=== PATIENT | male | born 1955 | race Caucasian/White ===

== ENCOUNTER 2020-05-04 09:27 | Outpatient (CLI) | payer OTHER, SELFPAY ==
--- NOTE | 2020-05-04 10:00 | XR_ITS ---
WS: [id number] ABDOMEN: SUPINE FILM HISTORY: RENAL STONE COMPARISON: None available. Normal bowel gas pattern. No soft tissue masses. Right kidney: No renal or ureteral stone identified. Left kidney: Large calcification centered over the LEFT renal pelvis measuring 1.7 x 2.4 cm. No urete ral calcification. XR/XR KUB [id number] IMPRESSION: LEFT renal calcification measuring 1.7 x 2.4 cm.
== END 2020-05-04 09:28 | disposition home or self-care (01) ==
LOC: RAD 09:32
PROVIDERS: PCP Urology; Visit Provider Urology
DX: N20.0 Calculus of kidney (principal)
CPT/HCPCS: 74018; 81003; 87635

== ENCOUNTER 2020-05-09 09:43 | Day surgery (SDC) | payer OTHER, SELFPAY ==
[2020-05-06 10:59] VITALS: BMI 29.1
[2020-05-09] VITALS (8 sets, daily range): BP systolic 113–134; BP diastolic 69–109; PULSE 80–89; RESP 16–20; TEMP 36.3; O2SAT 95–98
--- NOTE | 2020-05-09 09:50 | XR_ITS ---
WS: [id number] Exam: XR KUB [id number] Date/Time of Exam: 05/09/2020 10:00 AM Reason For Exam: Preop left ESWL Comparison 05/04/2020. 2.4 x 1.7 cm calcification superimposes the left renal silhouette and apparently represents a large s tone in the left renal pelvis. This is unchanged in appearance. No other abnormal abdominal calcifica tions are noted. Visualized organ margins are intact. No bowel obstruction or free air. Bony structur es are unremarkable. XR/XR KUB [id number] IMPRESSION: 1. Large calcification superimposing the left kidney apparently representing th e patient's known large left renal calculus. 2. No acute abdominal finding.
[2020-05-09] MEDS: sodium chloride 0.9% 1,000 ML 30 ML IV (10:43)
--- NOTE | 2020-05-09 11:54 | ANES.PREANE2 ---
Pre-Anesthetic Assessment Pre-Anesthetic Assessment: Height/Weight: Height 1.78 m Weight 92.079 kg Temp Pulse Resp BP Pulse Ox 97.4 F L 89 18 134/109 96 05/09/20 10:19 05/09/20 10:19 05/09/20 10:19 05/09/20 10:19 05/09/20 10:19 Preop Diagnosis: Left renal calculus Proposed Procedure: Operation Date: 05/09/20 12:00 Proposed Procedures p Cystoscopy 05907 42120 N20.0(Left) - Say Haynes MD s Ureteral Stent Placement(Left) - Say Haynes MD s ESWL(Left) - Say Haynes MD Was Beta Doug taken within 24 hours: N/A Last intake: Intake Last Liquid Date 05/08/20 Last Liquid Time 22:00 Last Solid Date 05/08/20 Last Solid Time 16:00 Social: Social History: No alcohol and No tobacco Exam: Pre-Anes Outpt Exam: alert, oriented x 3, clear to auscultation bilaterally and regular rate & rhythm Airway: Submandibular: WNL Cervical ROM: WNL MP: 2 Additional comments: OK dentition, several chips Metabolic: Metabolic: Thyroid Anesthetic Plan: ASA status: 2 Anesthesia: General Risk of > 500 ml blood loss (7ml/kg in children): No Meds/Allergies Current Medications: Current Medications Generic Name Dose Route Start Last Admin Trade Name Freq PRN Reason Stop Dose Admin Sodium Chloride 1,000 mls @ 30 ml s/hr 05/09/20 10:00 05/09/20 10:43 Sodium Chloride 0.9% IV 05/10/20 09:59 30 mls/hr .Q24H ESPERANZA Administration PFSH Anesthesia PFSH: Medical History Hydronephrosis Hyperlipidemia Hypothyroidism (acquired) Left renal stone Renal cyst Surgical History Hx of PAULINO Family History Family/Other Cancer Hypertension Diabetes CAD (coronary artery disease) Social History (Updated 05/06/20 @ 10:54 by Arti Hernandez) Smoking and tobacco status: never smoked Alcohol intake: never Marital status: Data Anesthesia Cardiac Studies: No Data to Display
[2020-05-09] MEDS: levofloxacin-dextrose 5 % 500 MG/100 ML PREMIX 100 MG IV (12:42)
--- NOTE | 2020-05-09 13:09 | W.PM.OPSUD ---
Surgery/Procedure H&P Update DATE OF PROCEDURE: May 09, 2020 DATE H&P PERFORMED: 05/04/20 H&P UPDATE INFORMATION: I have reviewed H&P completed within last 30 days, I have examined patient prior to procedure, No changes to prior documentation and H&P is in [facility] [place] [place] EMR on date indicated PREOP DIAGNOSIS: Left renal calculus PLANNED PROCEDURE: Operation Date: 05/09/20 12:00 Proposed Procedures p Cystoscopy 12436 55777 N20.0(Left) - Say Haynes MD s Ureteral Stent Placement(Left) - Say Haynes MD s ESWL(Left) - Say Haynes MD
--- NOTE | 2020-05-09 13:52 | PM.OP ---
Operative Report Date of procedure: May 09, 2020 Pre-op Diagnosis: Left renal calculus Post-op diagnosis: same Procedure Done: 1. Cystoscopy with left ureteral stent placement (7 Nepalese by 28 cm double-pigtail without string) 2. Extracorporeal shockwave lithotripsy 2 large left renal pelvic stone Pathology: none sent Surgeon: Dallas Ct Scan Special Procedures Technologist: Lithotripsy End Frazer: Wade Roa Anesthesia: General Urine output: Not measured Complications: None Findings: 7 x 28 cm double-pigtail stent Good change. 3000 shocks administered. Brief History: Jomar is a very pleasant 65-year-old white male who presented with a history of left flank pain and CT scan that had demonstrated a large partially obstructing left renal pelvic stone. Options were thoroughly discussed and ultimately he elected ESWL as initial therapy for the large stone. We reviewed the likelihood of more than 1 treatment required to clear the stone and potentially addition of endoscopic (retrograde versus antegrade) options. Procedure: After routine preoperative evaluation examination and obtaining of informed consent he was taken to the operating suite on 05/09/2020 where general anesthesia was administered without difficulty after appropriate timeout was performed, SCDs confirmed to be functioning, preoperative antibiotics administered, beta-roel protocol confirmed. Prepped and draped in usual sterile fashion in dorsolithotomy position paying careful attention to avoiding pressure points. 21 Nepalese cystoscope with 30 degree lens was introduced to the urethra meatus and advanced into the bladder under videoscopy The bladder was systematically examined and found to be within normal limits. The left ureteral orifice was identified close to the posterior bladder neck. A flexible tip guidewire was advanced easily up the left ureter bypassing the stone curling in the area of the upper pole calyx. A 7 Nepalese by 28 cm double-pigtail stent was advanced over the guidewire through the cystoscope into appropriate position as confirmed via fluoroscopy and cystoscopy. The bladder was drained. He was then positioned in the supine position for the ESWL component. With the shock head positioned posteriorly shockwave was initiated intensity of 1 and advanced an intensity of 4. Rate was 70 throughout. A several minute pause was conducted after about 300 shocks. The stone showed early change and by the completion of the procedure was significantly change as far as density spreading out and blurred borders. He tolerated the procedure well without complications and was awakened in the operating room and returned to recovery in stable condition. PLANS: 1. Maintain ureteral stent 2. Return to clinic in 1 week for KUB. Not likely to remove the stent next week. 3. Strain all voids and bring in specimens for stone analysis.
--- NOTE | 2020-05-09 14:19 | P.PCN_ITS ---
PACU note PACU note: VSS, Good respiratory effort, report to LICENSED PHYSICAL THERAPY ASSISTANT Post-Anesthesia Exam: awake
--- NOTE | 2020-05-09 14:19 | PM.PACU ---
PACU note PACU note: VSS, Good respiratory effort, report to CORPORATE TRAVEL COUNSELOR Post-Anesthesia Exam: awake
--- NOTE | 2020-05-09 15:56 | ANE.PACU2 ---
Inpatient post-anesthesia follow up: Airway intact: Yes Vital signs: Temperature 97.4 F Pulse Rate 82 Respiratory Rate 18 Blood Pressure 124/78 Pulse Oximetry 98 Oxygen Delivery Me thod Room Air Oxygen Flow Rate 6 Fraction of Inspir ed Oxygen Hydration adequate: Yes Nausea and vomiting: No Pain level: 2 Mental status: Baseline
== END 2020-05-09 15:04 | disposition home or self-care (01) ==
PROVIDERS: PCP Urology; Visit Provider Urology
PROC: 0TJB8ZZ Inspection of Bladder, Via Natural or Artificial Opening Endoscopic (ICD-10-PCS; CPT 52000; principal; 2020-05-09 12:00)
PROC: (CPT 50605; 2020-05-09 12:00)
PROC: (CPT 50590; 2020-05-09 12:00)
DX: N20.0 Calculus of kidney (principal); E78.5 Hyperlipidemia, unspecified; E03.9 Hypothyroidism, unspecified
CPT/HCPCS: 50590; 52332; 74018; C2625; J0330; J1100; J1956; J2370; J2405; J2704; J2710; J3010; J3490; J7030

== ENCOUNTER 2020-05-16 09:21 | Outpatient (CLI) | payer OTHER, SELFPAY ==
--- NOTE | 2020-05-16 10:00 | XRR_ITS ---
PROCEDURE INFORMATION: Exam: XR Abdomen Exam date and time: 05/16/2020 9:29 AM Age: 65 years old Clinical indication: Condition or disease; Kidney or ureter condition; Calculus (stone) in kidney; Prior surgery; Surgery type: Kidney stone; Additional info: Stones TECHNIQUE: Imaging protocol: XR of the abdomen. Views: Frontal supine view of the abdomen. 1 View. COMPARISON: CR XR KUB [id number] 05/09/2020 9:54 AM FINDINGS: Tubes, catheters and devices: Left double-J catheter. Gastrointestinal tract: Prominent stool, without bowel dilatation. Intraperitoneal space: Punctate pelvic calcification, presumably vascular in etiology. If urolithiasis is of clinical concern, CT may be of benefit for further evaluation. Organs: Multiple left renal calculi, the largest measuring 19 mm. Bones/joints: Osteopenia and multiple compression fractures in the spine. Mild degenerative change. XR/XR KUB [id number] IMPRESSION: Multiple left renal calculi, the largest measuring 19 mm.
== END 2020-05-16 09:22 | disposition home or self-care (01) ==
LOC: RAD 09:24
PROVIDERS: PCP Urology; Visit Provider Urology
DX: N20.0 Calculus of kidney (principal)
CPT/HCPCS: 74018; 81003

== ENCOUNTER → 2020-05-24 11:34 | Outpatient (BNVA) | payer OTHER, SELFPAY | PROVIDERS: PCP Family Medicine; Visit Provider Urology | DX: N13.2 Hydronephrosis with renal and ureteral calculous obstruction (principal); Z11.52 Encounter for screening for COVID-19 | CPT/HCPCS: 87635 ==

== ENCOUNTER 2020-05-27 12:36 | Day surgery (SDC) | payer OTHER, SELFPAY ==
[2020-05-26 15:57] VITALS: BMI 29.1
--- NOTE | 2020-05-27 13:07 | ANES.PREANE2 ---
Pre-Anesthetic Assessment Pre-Anesthetic Assessment: Height/Weight: Height 1.78 m Weight 92.079 kg Preop Diagnosis: Left renal calculus Proposed Procedure: Operation Date: 05/27/20 14:10 Proposed Procedures p ESWL 58453 n20.10 n13.2(Not Applicable) - Say Haynes MD Was Beta Doug taken within 24 hours: N/A Social: Social History: No alcohol and No tobacco Exam: Pre-Anes Outpt Exam: alert, oriented x 3, clear to auscultation bilaterally and regular rate & rhythm Airway: Submandibular: WNL Cervical ROM: WNL MP: 2 Dentition: Chipped Additional comments: OK dentition, several chipped Metabolic: Metabolic: Thyroid Anesthetic Plan: ASA status: 2 Anesthesia: General Risk of > 500 ml blood loss (7ml/kg in children): No PFSH Anesthesia PFSH: Medical History Hydronephrosis Hyperlipidemia Hypothyroidism (acquired) Left renal stone Renal cyst Surgical History Hx of LASIK S/P extracorporeal shock wave therapy Family History Family/Other Cancer Hypertension Diabetes CAD (coronary artery disease) Father , at age 83 Dementia Mother , at age 49 MVA (motor vehicle accident) Social History Smoking and tobacco status: never smoked Alcohol intake: never Marital status: Current occupational status: retired History of recent travel: No Data Anesthesia Cardiac Studies: No Data to Display
--- NOTE | 2020-05-27 13:18 | XR_ITS ---
WS: [id number] KUB, AP view, 05/27/2020 Clinical Data: Preop ESWL left renal calculus Comparison: KUB, 05/16/2020 Findings: The left ureteral stent remains in good position. There are multiple left renal calculi including the largest measuring 2 cm. There is a calcification adjacent to the proximal left ureteral stent is probably within the left roula al pelvis unchanged. There may be a small bladder calcification and circled by the distal ureteral st ent loop. XR/XR KUB [id number] Impression: 1. Multiple left renal calculi unchanged. 2. Left ureteral stent.
[2020-05-27] MEDS: sodium chloride 0.9% 1,000 ML 30 ML IV (14:30)
--- NOTE | 2020-05-27 15:02 | P.HPUD_ITS ---
Surgery/Procedure H&P Update DATE OF PROCEDURE: May 27, 2020 DATE H&P PERFORMED: 05/04/20 H&P UPDATE INFORMATION: I have reviewed H&P completed within last 30 days, I have examined patient prior to procedure, No changes to prior documentation and [place] [facility] [place] indicated PREOP DIAGNOSIS: Residual left renal calculi PLANNED PROCEDURE: Operation Date: 05/27/20 14:10 Proposed Procedures p ESWL 64317 n20.10 n13.2(Not Applicable) - Say Haynes MD
--- NOTE | 2020-05-27 16:08 | P.OP_ITS ---
Operative Report Date of procedure: May 27, 2020 Pre-op Diagnosis: Residual left renal/ureteral calculus fragments Post-op diagnosis: same Procedure Done: 1. Extracorporeal shockwave lithotripsy left renal and ureteral calculus fragments Specimens removed/disposition: None Pathology: none sent Surgeon: Dallas Insurance Claims Analyst: Magno Hoyos Anesthesia: General Estimated blood loss: None Urine output: Not measured Complications: None Findings: 2 distinct areas treated: UPJ on the left and large fragment renal pelvis including left lower pole calyx. Excellent change by completion of procedure 3000 shocks administered Condition: stable Disposition: PACU Brief History: Mr. Arshad is a very pleasant 65-year-old white male who presented with a symptomatic large left renal calculus and elected treatment because of the symptoms. We reviewed percutaneous, retrograde endoscopic approaches, and ESWL as well as combination of all the above. To date he is undergone 1 treatment with ESWL with significant change but still fragments far too large to pass. It was anticipated at the first treatment that he would require more than 1 treatment potentially several in order to clear the stone and he preferred that over percutaneous endoscopic approaches Procedure: After routine preoperative evaluation examination and obtaining of informed consent he was taken to the operating suite on 05/27/2020 where general anesthesia was administered without difficulty after appropriate timeout was performed, SCDs confirmed to be functioning, preoperative antibiotics administered, beta-roel protocol confirmed. Positioned on the Dornier unit in supine position with the stone located at the focal point with the shock head positioned posteriorly. The stones both in the renal pelvis, lower pole as well as the proximal ureter/UPJ were easily identified. Shockwave therapy was initiated to the renal pelvic stone first and early change was noted. After about 150-200 shocks a several minute pause was conducted. The focal point was manipulated in its position over the large stone in the renal pelvis with significant change throughout. Shocks were also administered to the lower pole collection of stones. The focal point was then moved to the UPJ where those stones were treated with excellent fragmentation. The focal point was then shifted back to the conglomeration of stones in the renal pelvis and lower pole an additional 700 shocks were administered there with difficulty seeing any obvious pieces remaining at the completion. The final 300 shocks were then administered back at the UPJ and similar results were noted. On final inspection no significant stone burden could be identified with careful fluoroscopic monitoring. We had talked about potentially changing the stent if there was a likelihood that he would require a third treatment and at this point it was felt that that likelihood would be small. For that reason the stent was left indwelling. He tolerated the procedure well without complications and was awakened in the operating room and returned to the recovery room in stable condition. PLANS: 1. Anticipate discharge from outpatient surgery 2. Follow-up next week with KUB first 3. Continue straining
[2020-05-27 16:20] VITALS: BP 131/85; PULSE 85; RESP 16; TEMP 36.6; O2SAT 96
[2020-05-27 16:25] VITALS: BP 115/81; PULSE 83; RESP 20; O2SAT 97
[2020-05-27 16:30] VITALS: BP 113/81; PULSE 83; RESP 19; O2SAT 98
[2020-05-27 16:35] VITALS: BP 116/85; PULSE 93; RESP 18; TEMP 36.3; O2SAT 92
--- NOTE | 2020-05-27 16:35 | ANE.PACU2 ---
Inpatient post-anesthesia follow up: Airway intact: Yes Vital signs: Temperature 98 F Pulse Rate 83 Respiratory Rate 20 Blood Pressure 115/81 Pulse Oximetry 97 Oxygen Delivery Me thod Simple Mask Oxygen Flow Rate 8 Fraction of Inspir ed Oxygen Hydration adequate: Yes Nausea and vomiting: No Pain level: 2 Mental status: Baseline
[2020-05-27 17:00] VITALS: BP 124/68; PULSE 89; RESP 18; TEMP 36.2; O2SAT 99
[2020-05-27 17:26] VITALS: BP 117/89; PULSE 89; RESP 18; O2SAT 99
== END 2020-05-27 17:30 | disposition home or self-care (01) ==
PROVIDERS: PCP Family Medicine; Visit Provider Urology
PROC: (CPT 50590; principal; 2020-05-27 14:10)
DX: N20.2 Calculus of kidney with calculus of ureter (principal); E78.5 Hyperlipidemia, unspecified; E03.9 Hypothyroidism, unspecified
CPT/HCPCS: 50590; 74018; J1100; J2250; J2370; J2405; J2704; J3010; J3490; J7030

== ENCOUNTER 2020-06-03 08:02 | Outpatient (CLI) | payer OTHER, SELFPAY ==
--- NOTE | 2020-06-03 08:15 | XR_ITS ---
WS: [id number] XR KUB [id number] REASON FOR EXAM: RENAL STONE FINDINGS: Left ureteral stent The dominant central calculus has migrated to overlie the lower pole of the left kidney. The orientat ion of the calculus is unchanged. The volume of the calculus appears decreased. There is a collection of multiple small calculi that remain centrally, just inferior to the proximal pigtail portion of th e left ureteral stent. Small stone fragments are seen along the proximal portion of the left ureteral stent. No calculi are identified overlying the bladder or distal left ureteral stent. No other interval change or new finding is noted. XR/XR KUB [id number] IMPRESSION: Left ureteral stent and urinary tract calculi as above.
== END 2020-06-03 08:03 | disposition home or self-care (01) ==
LOC: RAD 08:06
PROVIDERS: PCP Family Medicine; Visit Provider Urology
DX: N20.0 Calculus of kidney (principal); Z96.0 Presence of urogenital implants
CPT/HCPCS: 74018; 81003; 82365; 88300

== ENCOUNTER 2020-06-16 06:52 | Outpatient (CLI) | payer OTHER, SELFPAY ==
--- NOTE | 2020-06-16 07:15 | XR_ITS ---
WS: [id number] KUB, 06/16/2020 Clinical Data: N20.0 - Calculus of kidney Comparison: KUB, 06/03/2020. Findings: There are numerous calculi overlying the midportion left kidney. There are calculi adjacent to the pr oximal portion of the left ureteral stent. The left ureteral stent remains in good position. There is a moderate amount of fecal material throughout colon. XR/XR KUB 53527 Impression: No change in left ureteral stent and left renal and proximal ureteral calculi.
== END 2020-06-16 06:53 | disposition home or self-care (01) ==
LOC: RAD 06:54
PROVIDERS: PCP Family Medicine; Visit Provider Urology
DX: N20.0 Calculus of kidney (principal); Z96.0 Presence of urogenital implants
CPT/HCPCS: 74018; 81003

== ENCOUNTER → 2020-06-23 09:55 | Outpatient (BNVA) | payer OTHER, SELFPAY | PROVIDERS: PCP Family Medicine; Visit Provider Urology | DX: Z20.822 Contact with and (suspected) exposure to COVID-19 (principal); N20.0 Calculus of kidney | CPT/HCPCS: 87635 ==

== ENCOUNTER 2020-06-27 10:04 | Day surgery (SDC) | payer OTHER, SELFPAY ==
[2020-06-24 10:05] VITALS: BMI 26.2
[2020-06-27] VITALS (7 sets, daily range): BP systolic 108–132; BP diastolic 47–102; PULSE 63–93; RESP 16–19; TEMP 36.1–36.6; O2SAT 91–97
--- NOTE | 2020-06-27 10:17 | XRR_ITS ---
PROCEDURE INFORMATION: Exam: XR Abdomen Exam date and time: 06/27/2020 10:20 AM Age: 65 years old Clinical indication: Screening exam; Other: Preop left eswl; Prior surgery; Surgery type: Kidney stone TECHNIQUE: Imaging protocol: XR of the abdomen. Views: Frontal supine view of the abdomen. 1 View. COMPARISON: CR XR KUB [id number] 06/16/2020 7:06 AM FINDINGS: Tubes, catheters and devices: Multiple stable calculi in the left kidney and proximal left ureter, with an indwelling left double-J catheter. Gastrointestinal tract: Interval decrease in quantity of stool. Intraperitoneal space: Incomplete visualization of the superior most abdomen. Bones/joints: Osteopenia with stable compression deformities and degenerative change. XR/XR KUB [id number] IMPRESSION: Multiple stable calculi in the left kidney and proximal left ureter, with an indwelling left double-J catheter.
[2020-06-27] MEDS: sodium chloride 0.9% 1,000 ML 30 ML IV (10:59)
--- NOTE | 2020-06-27 11:14 | ANES.PREANE2 ---
Pre-Anesthetic Assessment Pre-Anesthetic Assessment: Height/Weight: Height 1.78 m Weight 83.007 kg Temp Pulse Resp BP Pulse Ox 97.9 F 93 18 132/102 97 06/27/20 10:44 06/27/20 10:44 06/27/20 10:44 06/27/20 10:44 06/27/20 10:44 Preop Diagnosis: Residual left renal calculi Proposed Procedure: Operation Date: 06/27/20 12:00 Proposed Procedures p Cystoscopy 46003 17887 N20.0(Not Applicable) - Say Haynes MD s Ureteral Stent Exchange(Left) - Say Haynes MD s ESWL(Not Applicable) - Say Haynes MD Was Beta Doug taken within 24 hours: N/A Was Clonidine taken within 24 hours: N/A Last intake: Intake Last Liquid Date 06/25/20 Last Solid Date 06/26/20 Social: Social History: No alcohol and No tobacco Exam: Pre-Anes Outpt Exam: alert, oriented x 3, clear to auscultation bilaterally and regular rate & rhythm Airway: Submandibular: WNL Cervical ROM: WNL MP: 2 History/ROS: No significant history except as noted Pulmonary: Pulmonary: None reported CV/HEM: CV/HEM: None reported : : None reported Hepatic: Hepatic: None reported GI: GI: GERD Metabolic: Metabolic: Thyroid Musc/skel: Musc/skel: None reported Neuropsych: Neuropsych: None reported Anesthetic Plan: ASA status: 2 Anesthesia: General Meds/Allergies Current Medications: Current Medications Generic Name Dose Route Start Last Admin Trade Name Freq PRN Reason Stop Dose Admin Sodium Chloride 1,000 mls @ 30 ml s/hr 06/27/20 10:30 06/27/20 10:59 Sodium Chloride 0.9% IV 06/28/20 10:29 30 mls/hr .Q24H ESPERANZA Administration PFSH Anesthesia PFSH: Medical History Hydronephrosis Hyperlipidemia Hypothyroidism (acquired) Left renal stone Renal cyst Surgical History Hx of LASIK S/P extracorporeal shock wave therapy Family History Family/Other Cancer Hypertension Diabetes CAD (coronary artery disease) Father , at age 83 Dementia Mother , at age 49 MVA (motor vehicle accident) Social History Smoking and tobacco status: never smoked Alcohol intake: never Marital status: Current occupational status: retired History of recent travel: No Data Anesthesia Cardiac Studies: No Data to Display
[2020-06-27] MEDS: levofloxacin-dextrose 5 % 500 MG/100 ML PREMIX 100 MG IV (12:08)
--- NOTE | 2020-06-27 12:10 | P.HPUD_ITS ---
Surgery/Procedure H&P Update DATE OF PROCEDURE: June 27, 2020 DATE H&P PERFORMED: 06/16/20 H&P UPDATE INFORMATION: I have reviewed H&P completed within last 30 days, I have examined patient prior to procedure, No changes to prior documentation and [place] [facility] [place] CHANGES TO PREVIOUS DOCUMENTATION: continues to clear some fragments PREOP DIAGNOSIS: Residual left renal calculi PLANNED PROCEDURE: Operation Date: 06/27/20 12:00 Proposed Procedures p Cystoscopy 47482 69829 N20.0(Not Applicable) - Say Haynes MD s Ureteral Stent Exchange(Left) - Say Haynes MD s ESWL(Not Applicable) - Say Haynes MD
--- NOTE | 2020-06-27 12:13 | P.OP_ITS ---
Operative Report Date of procedure: June 27, 2020 Pre-op Diagnosis: Residual left renal calculi Post-op diagnosis: same Procedure Done: 1. Cystoscopy, exchange of left ureteral stent 2. Extracorporeal shockwave lithotripsy to residual left renal calculi fragments Surgeon: [place] Panama Hat Smearer: Crispin lithotripsy Electronic Equipment Repairmen Anesthesia: General Estimated blood loss: None Urine output: Not measured Complications: None Findings: Stent exchange. No difficulty. 3000 shocks administered to the left lower pole and renal pelvic stone clusters and stone fragments along the proximal aspect of the stent with good change. Condition: stable Disposition: PACU Brief History: Mr. Arshad is a very pleasant 65-year-old white male who was recently diagnosed with a very large left renal pelvic stone. Was symptomatic. Options for treatment included ESWL with multiple treatments predicted or percutaneous nephrostolithotomy. Reviewed locations were PERC neph available. Ultimately chose ESWL with stenting. He has since undergone 2 treatments with significant change with each treatment and multiple stones passing. Current residual stone status includes some moderate size stones along the proximal stent and in the renal pelvis what appears to be more sand in the left lower pole but possibly a sizable remaining fragment. Admitted now for ESWL #3. Stent change recommended as well. Procedure: After routine preoperative evaluation examination and obtaining of informed consent he was taken to the operating suite on 1220 where general anesthesia was administered without difficulty after appropriate timeout was performed, SCDs confirmed to be functioning, preoperative antibiotics administered, beta-roel protocol confirmed. Prepped and draped in usual sterile fashion in dorsolithotomy position paying careful attention to avoiding pressure points. 21 Trinidadian cystoscope with 30 degree lens was introduced into the urethra meatus and advanced into the bladder to videoscopy. Flexible tip guidewire was advanced up the left ureter next to the stent and the stent was removed with grasping forceps with easy uncurling of the proximal aspect. A 7 Trinidadian by 28 cm double-pigtail stent was advanced over the guidewire through the cystoscope into appropriate position as confirmed via fluoroscopy and cystoscopy. The patient was then repositioned in supine position paying careful attention to avoiding pressure points. With the shock head positioned posteriorly the focal point was moved to the stones in the left lower pole calyx where therapy was begun at an intensity of 1 and advanced an intensity of 4. Rate was at 70. Approximately 300 shocks were administered and then a several minute pause was conducted. Over the course of 3000 shocks the focal point was moved from the left lower pole to the renal pelvic stone clusters to the left proximal ureteral stone clusters. Good change was noted. He tolerated procedure well without complications and was awakened in the op erating room and returned to the care of room in stable condition. PLANS: 1. Follow-up in approximately 2 weeks with KUB. Hopefully we can remove the stent at that time. 2. Encouraged him to continue postural percussion and forcing fluids.
--- NOTE | 2020-06-27 13:35 | ANE.PACU2 ---
Inpatient post-anesthesia follow up: Airway intact: Yes Vital signs: Temperature 97.9 F Pulse Rate 93 Respiratory Rate 18 Blood Pressure 132/102 Pulse Oximetry 97 Oxygen Delivery Me thod Room Air Oxygen Flow Rate Fraction of Inspir ed Oxygen Hydration adequate: Yes Nausea and vomiting: No Pain level: 3 Mental status: Baseline
== END 2020-06-27 14:56 | disposition home or self-care (01) ==
PROVIDERS: PCP Family Medicine; Visit Provider Urology
PROC: 0TJB8ZZ Inspection of Bladder, Via Natural or Artificial Opening Endoscopic (ICD-10-PCS; CPT 52000; principal; 2020-06-27 12:00)
PROC: (CPT 50590; 2020-06-27 12:00)
PROC: (CPT 50590; 2020-06-27 12:00)
DX: N20.0 Calculus of kidney (principal); E78.5 Hyperlipidemia, unspecified; E03.9 Hypothyroidism, unspecified; K21.9 Gastro-esophageal reflux disease without esophagitis
CPT/HCPCS: 50590; 52332; 74018; C2625; J1956; J2704; J2710; J3010; J3490; J7030

== ENCOUNTER 2020-07-11 07:01 | Outpatient (CLI) | payer OTHER, SELFPAY ==
--- NOTE | 2020-07-11 07:04 | XR_ITS ---
WS: [id number] Exam: XR KUB [id number] Date/Time of Exam: 07/11/2020 7:04 AM Reason For Exam: N20.0 - Calculus of kidney Comparison 06/27/2020. A double-J left ureteral catheters in place in satisfactory position. There are multiple calcificatio ns seen along the course of the upper segment of the catheter suggesting stones in the upper left ure ter. There are also calcifications in the lower pole of the left kidney suggesting stones. There are fewer stones in the kidney than noted on the previous exam. No bowel obstruction or free air. Visual ized organ margins are intact. Moderate amount stool in the colon. Bony structures are intact. XR/XR KUB [id number] IMPRESSION: 1. Left-sided ureteral double-J catheter remaining in satisfactory location. 2. Numerous calcifications noted along the course of the catheter particularly the upper one third. These apparently represents stones in the ureter. There ar e fewer stones noted in the lower pole the left kidney compared to the last rosie dy.
== END 2020-07-11 07:02 | disposition home or self-care (01) ==
LOC: RAD 07:03
PROVIDERS: PCP Family Medicine; Visit Provider Urology
DX: N20.0 Calculus of kidney (principal); Z96.0 Presence of urogenital implants
CPT/HCPCS: 74018; 87635

== ENCOUNTER 2020-07-14 11:26 | Day surgery (SDC) | payer OTHER, SELFPAY ==
[2020-07-13 16:53] VITALS: BMI 26.2
--- NOTE | 2020-07-14 | SCC_ITS ---
Procedure Done: 1. Cystoscopy, left ureteroscopy with ureteral stone extraction 2. LEFT renoscopy with laser lithotripsy of remaining left kidney stone fragments 3. Left ureteral stent replacement 32.3 seconds of fluoroscopic guidance, for a cumulative dose of 7.73 mGy, was provided to Dr. Haynes by the radiology department. C-arm images of the abdomen were saved for the patient's permanent record. [facility]
--- NOTE | 2020-07-14 11:38 | XR_ITS ---
WS: [id number] Exam: XR KUB [id number] Date/Time of Exam: 07/14/2020 11:46 AM Reason For Exam: Preop left ureteroscopy Comparison 07/11/2020. Left double-J ureteral stent is in place remaining in satisfactory position. There are several calcif ications along the stent most likely representing renal stones. There are renal calculi in the left k idney. No bowel obstruction or free air. Visualized organ margins are intact. XR/XR KUB [id number] IMPRESSION: 1. Left ureteral stent in place in satisfactory position. There are numerous ti ny calcifications along the course of the stent apparently representing uretera l stones. There are also residual renal calculi on the left kidney.
--- NOTE | 2020-07-14 11:38 | SC_ITS ---
WS: [id number] Exam: C-arm FL for Urology Date/Time of Exam: 07/14/2020 11:38 AM Reason For Exam: Left ureteroscopy C-arm images of the left renal collecting system are submitted for evaluation. A left double-J urete ral stent is noted. Several images depict a ureteroscope extending up the left ureter and into the re gion of the left renal pelvis.
--- NOTE | 2020-07-14 12:21 | P.HPUD_ITS ---
Surgery/Procedure H&P Update DATE OF PROCEDURE: July 14, 2020 DATE H&P PERFORMED: 07/11/20 H&P UPDATE INFORMATION: I have reviewed H&P completed within last 30 days, I have examined patient prior to procedure, No changes to prior documentation and H&P is in [facility] on date indicated CHANGES TO PREVIOUS DOCUMENTATION: He has passed multiple other fragments in the left ureter and a fair number of the left proximal ureteral stone fragments have migrated into the mid ureter. No change in the left lower pole cluster of stones. PREOP DIAGNOSIS: Residual left renal calculi PLANNED PROCEDURE: Operation Date: 07/14/20 13:15 Proposed Procedures p Cystoscopy 98357 [id number] 11076 N13.30 N20.0(Not Applicable) - Say Haynes MD s Retrograde Pyelogram(Left) - MD patrica Shukla Ureteroscopy(Not Applicable) - MD patrica Shukla Laser Lithotripsy(Not Applicable) - MD patrica Shukla Ureteral Stent Exchange(Not Applicable) - Say Haynes MD
--- NOTE | 2020-07-14 12:39 | ANES.PREANE2 ---
Pre-Anesthetic Assessment Pre-Anesthetic Assessment: Height/Weight: Height 1.78 m Weight 83.007 kg Preop Diagnosis: Residual left renal calculi Proposed Procedure: Operation Date: 07/14/20 13:15 Proposed Procedures p Cystoscopy 51600 25073 45137 N13.30 N20.0(Not Applicable) - MD patrica Shukla Retrograde Pyelogram(Left) - MD patrica Shukla Ureteroscopy(Not Applicable) - MD patrica Shukla Laser Lithotripsy(Not Applicable) - MD patrica Shukla Ureteral Stent Exchange(Not Applicable) - Say Haynes MD Familial anesthetic complications: None Was Beta Doug taken within 24 hours: N/A Was Clonidine taken within 24 hours: N/A Last intake: Intake Last Liquid Date 07/13/20 Last Liquid Time 21:00 Last Solid Date 07/13/20 Last Solid Time 21:00 Social: Social History: No alcohol and No tobacco Exam: Pre-Anes Outpt Exam: alert, oriented x 3, clear to auscultation bilaterally and regular rate & rhythm Airway: Cervical ROM: WNL MP: 3 Dentition: Full GI: GI: GERD Metabolic: Metabolic: Thyroid Anesthetic Plan: ASA status: 2 Anesthesia: General Risk of > 500 ml blood loss (7ml/kg in children): No PFSH Anesthesia PFSH: Medical History Hydronephrosis Hyperlipidemia Hypothyroidism (acquired) Left renal stone Renal cyst Surgical History Hx of LASIK S/P extracorporeal shock wave therapy Family History Family/Other Cancer Hypertension Diabetes CAD (coronary artery disease) Father , at age 83 Dementia Mother , at age 49 MVA (motor vehicle accident) Social History Smoking and tobacco status: never smoked Alcohol intake: never Marital status: Current occupational status: retired History of recent travel: No Data Anesthesia Cardiac Studies: No Data to Display
[2020-07-14] MEDS: sodium chloride 0.9% 1,000 ML 30 ML IV (13:20)
--- NOTE | 2020-07-14 15:32 | P.OP_ITS ---
Operative Report Date of procedure: July 14, 2020 Pre-op Diagnosis: Residual left renal calculi Post-op diagnosis: same Procedure Done: 1. Cystoscopy, left ureteroscopy with ureteral stone extraction 2. LEFT renoscopy with laser lithotripsy of remaining left kidney stone fragments 3. Left ureteral stent replacement Implants: 6 Turkish by 28 cm double-pigtail stent Specimens removed/disposition: Stone fragments Pathology: Stone fragments Surgeon: [place] Anesthesia: MAC Estimated blood loss: Minimal Urine output: Not measured Complications: None Findings: Approximately 10 stones removed from the ureter with passage of semirigid ureteroscope basket and grasping forceps. Both the 200 ?m and a 365 ?m thulium superpulse laser fiber was utilized to treat the remaining fragments in the kidney. Most of the remaining fragments were sand size. A large portion was removed with a basket Final inspection revealed no obvious remaining fragments with careful inspection of the calyces. Condition: stable Disposition: PACU Brief History: Mr. Arshad is a very pleasant 65-year-old white male who originally presented with a very large left renal pelvic stone that was symptomatic. We discussed options for treatment including percutaneous nephrostolithotomy, and endoscopy with laser lithotripsy, or ESWL or combination thereof all. Ultimately chose to proceed with ESWL. He has since undergone 3 treatments with marked improvement of the remaining stone burden with each treatment. He appeared to have some small remaining fra gments in the ureter and has passed quite a few of those but had maybe 10 or so remaining in the proximal ureter at last visit. He also had an accumulation of smaller stone fragments in the left lower pole calyx and despite aggressive postural percussion these had not migrated out of the calyx. He was admitted for attempted clearing the remaining stones with endoscopy and laser lithotripsy as needed. Procedure: After routine preoperative evaluation examination and obtaining of informed consent he was taken to the operating suite on 07/14/2020 where general anesthesia was administered without difficulty after appropriate timeout was performed, SCDs confirmed to be functioning, preoperative antibiotics administered, beta-roel protocol confirmed. Prepped and draped in the usual sterile fashion in dorsolithotomy position paying careful attention to avoiding pressure points. 21 Turkish cystoscope with 30 degree lens was introduced into the urethral meatus and advanced into the bladder to videoscopy. The bladder was systematically examined and found to be within normal limits other than some mild inflammatory changes related to the stent. A flexible tip guidewire was then easily advanced up the left ureter next to the stent and into the upper pole calyx. The stent was grasped with grasping forceps and easily withdrawn without tension under fluoroscopic guidance. A second guidewire was then passed and a 38 cm ureteral access sheath was advanced over the working guidewire (the first wire was secured to the drapes as a safety wire) easily up the ureter to just below the chain of stones in the proximal ureter. An offset semirigid ureteroscope was then advanced through the sheath and the stones that were in the ureter or for the most part removed with just grasping forceps but a couple of them were large enough that required lithotripsy to pull through the sheath. If 365 ?m thulium superpulse laser fiber was utilized for t his purpose. Once the ureter was cleared the digital flexible ureteroscope was advanced through the sheath into the renal pelvis. It appears that many of the stones that have been located in the lower pole calyx have migrated into the renal pelvis since the x-ray before surgery. These were then fragmented with the laser fiber into mostly sand. The scope was then passed into the lower pole calyx which was accessible with a 365 ?m fiber and these remaining fragments were also fragmented. The most lower pole calyx could not be accessed with the 365 ?m fiber and therefore a 200 ?m thulium superpulse laser fiber was utilized which allowed the full bending of the scope into the lower pole calyx and the remaining fragments there were also treated. An X catch basket was then utilized to remove the larger of the fragments from the different locations in the renal pelvis and lower pole calyx. On final inspection no fragments of any consequence were identified. There remains some sand that would not be contained by the basket on different attempts. Hemostasis was good and the sheath was then backed down on the scope and the ureter inspected as the scope was removed. No remaining stones were identified. The cystoscope was then backloaded over the safety wire and a 6 Turkish by 28 cm double-pigtail stent was advanced over the guidewire through the cystoscope into appropriate position as confirmed via fluoroscopy and cystoscopy. There were a few fragments in the bladder that were drained and the procedure was completed. He tolerated the procedure well without complications And was awakened in the operating room and returned to the cart room in stable condition. Plans: 1. Anticipate discharge from outpatient surgery with follow-up next week with KUB and if things look as good as expected remove the stent at that time.
[2020-07-14 15:35] VITALS: BP 118/87; PULSE 69; RESP 16; TEMP 36.2; O2SAT 98
[2020-07-14 15:40] VITALS: BP 116/87; PULSE 65; RESP 12; O2SAT 100
[2020-07-14 15:45] VITALS: BP 119/83; PULSE 66; RESP 14; TEMP 36.2; O2SAT 96
[2020-07-14 15:51] VITALS: BP 130/95; PULSE 67; RESP 16; TEMP 36.6; O2SAT 95
--- NOTE | 2020-07-14 16:04 | ANE.PACU2 ---
Inpatient post-anesthesia follow up: Airway intact: Yes Vital signs: Temperature 98 F Pulse Rate 67 Respiratory Rate 16 Blood Pressure 130/95 Pulse Oximetry 95 Oxygen Delivery Me thod Room Air Oxygen Flow Rate 6 Fraction of Inspir ed Oxygen Hydration adequate: Yes Nausea and vomiting: No Pain level: 2 Mental status: Baseline
[2020-07-14 16:21] VITALS: BP 131/90; PULSE 70; RESP 16; TEMP 36.6; O2SAT 96
== END 2020-07-14 17:00 | disposition home or self-care (01) ==
PROVIDERS: PCP Family Medicine; Visit Provider Urology
PROC: 0TJB8ZZ Inspection of Bladder, Via Natural or Artificial Opening Endoscopic (ICD-10-PCS; CPT 52000; principal; 2020-07-14 13:05)
PROC: (CPT 74420; 2020-07-14 13:05)
PROC: 0TJ98ZZ Inspection of Ureter, Via Natural or Artificial Opening Endoscopic (ICD-10-PCS; CPT 52351; 2020-07-14 13:05)
PROC: (CPT 52356; 2020-07-14 13:05)
PROC: (CPT 52356; 2020-07-14 13:05)
DX: N20.0 Calculus of kidney (principal); K21.9 Gastro-esophageal reflux disease without esophagitis; E78.5 Hyperlipidemia, unspecified
CPT/HCPCS: 52356; 74018; 76000; 82365; 88300; C2625; J1100; J2405; J2704; J3010; J7030

== ENCOUNTER 2020-07-22 11:00 | Outpatient (CLI) | payer OTHER, SELFPAY ==
--- NOTE | 2020-07-22 11:07 | XR_ITS ---
WS: [id number] KUB, AP view, 07/22/2020 Clinical Data: residual left calculi Comparison: KUB, 07/14/2020. Findings: The left ureteral stent is in good position. There are calcifications overlying the left kidney. XR/XR KUB [id number] Impression: Satisfactory placement of left ureteral stent.
== END 2020-07-22 11:01 | disposition home or self-care (01) ==
LOC: RAD 11:02
PROVIDERS: PCP Family Medicine; Visit Provider Urology
DX: N20.0 Calculus of kidney (principal); Z96.0 Presence of urogenital implants
CPT/HCPCS: 74018; 81003

== ENCOUNTER 2020-09-22 09:57 | Outpatient (CLI) | payer OTHER, SELFPAY ==
--- NOTE | 2020-09-22 10:00 | XR_ITS ---
WS: [id number] KUB, AP view, 09/22/2020 Clinical Data: RENAL STONE Comparison: KUB, 07/22/2020. Findings: No abnormal intraabdominal masses are seen. There is no dilatated small bowel or evidence of obstruct ion. The left ureteral stent has been removed. There is fecal material in the ascending colon. The left re nal calcifications noted on the last examination have diminished.. XR/XR KUB [id number] Impression: Small calcifications overlying the left kidney.
== END 2020-09-22 09:58 | disposition home or self-care (01) ==
LOC: RAD 09:59
PROVIDERS: PCP Family Medicine; Visit Provider Urology
DX: N20.0 Calculus of kidney (principal)
CPT/HCPCS: 74018; 81003

== ENCOUNTER 2021-03-23 07:48 | Outpatient (CLI) | payer OTHER, SELFPAY ==
--- NOTE | 2021-03-23 08:00 | XR_ITS ---
WS: [id number] KUB, Clinical Data: LEFT RENAL STONE Comparison: None. Findings: No abnormal intraabdominal masses are seen. There is no dilatated small bowel or evidence of obstruct ion. The left renal calcification noted on the prior study may be present. Bowel gas obscures detail over the right kidney. XR/XR KUB [id number] Impression: Possible small left renal calcifications.
== END 2021-03-23 07:49 | disposition home or self-care (01) ==
LOC: RAD 07:50
PROVIDERS: PCP Family Medicine; Visit Provider Urology
DX: N20.0 Calculus of kidney (principal)
CPT/HCPCS: 74018; 81003